=== PATIENT | female | born 1965 | race American Indian/Alaskan Native ===

== ENCOUNTER 2017-06-02 20:16 | Emergency (ER) | payer OTHER ==
[2017-06-02 20:42] VITALS: BP 143/92; PULSE 82; RESP 18; TEMP 98.8; O2SAT 99
--- NOTE | 2017-06-02 21:10 | ED PDOC ---
HPI: CCC, URI, Sore Throat Time Seen by Provider: 06/02/17 20:38 Chief Complaint (Nursing): Cough, Cold, Congestion Chief Complaint (Provider): Cough History Per: Patient History/Exam Limitations: no limitations Onset/Duration Of Symptoms: Days (x14 days) Current Symptoms Are (Timing): Still Present Additional Complaint(s): Veronica Starks, a 52 year old female, with a past medical history of sarcoidosis presents to the ED complaining of a cough x2 weeks. The patient states that her cough is productive of yellow sputum and when she vomits she notices a lot of phlegm. She states that she was seen by a doctor and was prescribed amoxycillin which has offered no relief. PMD: Octavio Perez Past Medical History Reviewed: Historical Data, Nursing Documentation, Vital Signs Vital Signs: Last Vital Signs Temp 98.8 F 06/02/17 20:38 Pulse 82 06/02/17 20:38 Resp 18 06/02/17 20:38 BP 143/92 H 06/02/17 20:38 Pulse Ox 99 06/02/17 21:13 - Medical History PMH: Diabetes, HTN Denies: Chronic Kidney Disease Other PMH: sarcoidosis - Family History Family History: States: Unknown Family Hx - Home Medications Home Medications: Ambulatory Orders Medication Instructions Recorded Lisinopril/Hydrochlorothiazide 1 tab PO DAILY 04/29/16 [Zestoretic 20-12.5 mg Tablet] Nebivolol [Bystolic] 5 mg PO DAILY 04/29/16 Metformin HCl [Glucophage] 1 tab PO BID #60 tab 06/29/16 predniSONE [predniSONE Tab] 20 mg PO DAILY #12 tab 06/02/17 - Allergies Allergies/Adverse Reactions: Allergies Allergy/AdvReac Type Severity Reaction Status Date / Time No Known Allergies Allergy Verified 06/29/16 10:58 Review of Systems Constitutional: Negative for: Fever Respiratory: Positive for: Cough (productive of yellow sputum) Gastrointestinal: Positive for: Vomiting Physical Exam - Reviewed Nursing Documentation Reviewed: Yes Vital Signs Reviewed: Yes - Physical Exam Appears: Positive for: Non-toxic, No Acute Distress Head Exam: Positive for: ATRAUMATIC, NORMAL INSPECTION, NORMOCEPHALIC Skin: Positive for: Normal Color, Warm, Dry Eye Exam: Positive for: Normal appearance, EOMI, PERRL. Negative for: Nystagmus ENT: Positive for: Normal ENT Inspection. Negative for: Nasal Congestion, Pharyngeal Erythema, Tonsillar Exudate, Tonsillar Swelling Neck: Positive for: Normal, Painless ROM, Supple Cardiovascular/Chest: Positive for: Regular Rate, Rhythm, Chest Non Tender. Negative for: Tachycardia Respiratory: Positive for: Normal Breath Sounds. Negative for: Rales, Rhonchi, Wheezing, Respiratory Distress Neurologic/Psych: Positive for: Alert, Oriented, Gait - ECG O2 Sat by Pulse Oximetry: 99 (RA) Pulse Ox Interpretation: Normal Medical Decision Making Medical Decision Makin Initial Impression: 52 year old female presenting with a cough Initial Plan: * CXR * Reevaluation Scribe Attestation Documented by Pao Clemons acting as a scribe for Jennifer Rouse PA-C. Scribe Attestation All medical record entries made by the Scribe were at my direction and personally dictated by me. I have reviewed the chart and agree that the record accurately reflects my personal performance of the history, physical exam, medical decision making, and the department course for this patient. I have also personally directed, reviewed, and agree with the discharge instructions and disposition. Disposition - Clinical Impression Clinical Impression: Cough - Patient ED Disposition Is Patient to be Admitted: No - Disposition Disposition: Routine/Home Disposition Time: 22:10 Condition: GOOD Prescriptions: predniSONE [predniSONE Tab] 20 mg PO DAILY #12 tab Instructions: Acute Cough (ED)
--- NOTE | 2017-06-03 11:00 | RAD ---
HISTORY: cough x 2 weeks COMPARISON: Chest x-ray performed 06/29/16 TECHNIQUE: Chest PA and lateral FINDINGS: LUNGS: Mild biapical pleural thickening. Left hilar infiltrate. Please note that chest x-ray has limited sensitivity for the detection of pulmonary masses. PLEURA: No significant pleural effusion identified. No definite pneumothorax . CARDIOVASCULAR: Heart size appears top normal. Ectatic aorta. OSSEOUS STRUCTURES: Degenerative changes of the spine. VISUALIZED UPPER ABDOMEN: Unremarkable. OTHER FINDINGS: None. IMPRESSION: Left hilar infiltrate. Study has been marked for PA review.
== END 2017-06-02 22:39 | disposition home or self-care (01) ==
LOC: H.ER 20:16
DX: R05 Cough (principal); E11.9 Type 2 diabetes mellitus without complications; I10 Essential (primary) hypertension; D86.9 Sarcoidosis, unspecified

== ENCOUNTER 2017-07-12 11:27 | Observation (INO) | payer OTHER ==
[2017-07-12] MEDS ORDERED: Insulin Regular 100 units/ml IVP ONE ×2 (11:44→13:25)
[2017-07-12 12:09] LABS: BASO % 0.5 % (0.0-2.0); EOS # 0.1 K/uL (0.0-0.7); EOS % 1.6 % (0.0-4.0); HEMATOCRIT 40.1 % (34.0-47.0); LYMPH % 22.4 % (20.0-40.0); MEAN CELL VOLUME 90.5 fl (81.0-99.0); MEAN CORPUSCULAR HEMOGLOBIN 29.7 pg (27.0-31.0); MEAN CORPUSCULAR HGB CONC 32.9 g/dL (33.0-37.0); MEAN PLATELET VOLUME 9.8 fl (7.2-11.7); MONO # 0.6 K/uL (0.0-0.8); MONO % 7.1 % (0.0-10.0); NEUT # 6.2 K/uL (1.8-7.0); NEUT % 68.4 % (50.0-75.0); NRBC % 0.1 % (0.0-0.0)
[2017-07-12 12:43] LABS: ALB/GLOB RATIO 1.3 (1.0-2.1); ALCOHOL SERUM < 10 mg/dl (0-10); ALKALINE PHOSPHATASE 86 U/L (38-126); ALT/SGPT 50 U/L (9-52); AST/SGOT 35 U/L (14-36); BILIRUBIN,TOTAL 0.7 mg/dl (0.2-1.3); BLOOD UREA NITROGEN 28 mg/dl (7-17); CALCIUM 9.7 mg/dL (8.4-10.2); CARBON DIOXIDE 20 mmol/L (22-30); CHLORIDE 92 mmol/L (98-107); GFR AFRICAN-AMERICAN 57; POTASSIUM 4.7 MMOL/L (3.6-5.0); SODIUM 130 mmol/l (132-148); TOTAL PROTEIN 7.2 G/DL (6.3-8.2)
[2017-07-12 12:59] LABS: GLUCOSE,RANDOM 610 mg/dL (65-105)
[2017-07-12] MEDS ORDERED: Insulin Regular 100 units/ml ONE ×2 (13:06→16:46)
[2017-07-12] MEDS ORDERED: Sodium Chloride 0.9% 2,000 ML IV STA (13:25)
--- NOTE | 2017-07-12 14:50 | ED PDOC ---
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 States has felt progressively worse over last week, now with polydipsia and polyuria. Denies fever, SOB or chest pain. Had prior cough and ? diagnosis of pneumonia but saw Dr Mixon and said it improved. Discussed w Dr Mixon- no recent steroid use. - Symptoms Of CVA Current Coumadin Use?: No Past Medical History Reviewed: Historical Data, Nursing Documentation, Vital Signs Vital Signs: Last Vital Signs Temp 98.6 F 07/12/17 11:33 Pulse 73 07/12/17 11:33 Resp 18 07/12/17 11:33 BP 90/50 L 07/12/17 11:33 Pulse Ox 99 07/12/17 11:33 - Medical History PMH: Diabetes, HTN Denies: Chronic Kidney Disease Other PMH: sarcoid - Family History Family History: States: Unknown Family Hx - Living Arrangements Living Arrangements: With Family - Social History Current smoker - smoking cessation education provided: No - Home Medications Home Medications: Ambulatory Orders Medication Instructions Recorded Lisinopril/Hydrochlorothiazide 1 tab PO DAILY 04/29/16 [Zestoretic 20-12.5 mg Tablet] Nebivolol [Bystolic] 5 mg PO DAILY 04/29/16 Metformin HCl [Glucophage] 1 tab PO BID #60 tab 06/29/16 predniSONE [predniSONE Tab] 20 mg PO DAILY #12 tab 06/02/17 - Allergies Allergies/Adverse Reactions: Allergies Allergy/AdvReac Type Severity Reaction Status Date / Time No Known Allergies Allergy Verified 07/12/17 11:33 Review of Systems ROS Statement: Except As Marked, All Systems Reviewed And Found Negative Constitutional: Negative for: Fever, Chills Cardiovascular: Negative for: Chest Pain, Palpitations Respiratory: Positive for: Cough. Negative for: Shortness of Breath, Wheezing Gastrointestinal: Negative for: Nausea, Vomiting Genitourinary Female: Negative for: Dysuria Musculoskeletal: Negative for: Neck Pain Skin: Negative for: Rash, Lesions Neurological: Positive for: Dizziness. Negative for: Weakness Physical Exam - Reviewed Nursing Documentation Reviewed: Yes Vital Signs Reviewed: Yes - Physical Exam Appears: Positive for: Well, Non-toxic, No Acute Distress Head Exam: Positive for: ATRAUMATIC, NORMAL INSPECTION, NORMOCEPHALIC Skin: Positive for: Normal Color, Warm, DRY Eye Exam: Positive for: EOMI, Normal appearance, PERRL ENT: Positive for: Normal ENT Inspection Neck: Positive for: Normal, Painless ROM Cardiovascular/Chest: Positive for: Regular Rate, Rhythm Respiratory: Negative for: Respiratory Distress Gastrointestinal/Abdominal: Positive for: Bowel Sounds, Soft. Negative for: Tenderness, Guarding Back: Positive for: Normal Inspection Extremity: Positive for: Normal ROM Neurologic/Psych: Positive for: Alert, remedy developer II-XII (intact), Oriented. Negative for: Motor/Sensory Deficits, Aphasia - Laboratory Results Result Diagrams: 07/12/17 12:05 07/12/17 12:05 - ECG ECG: Positive for: Interpreted By Me ECG Rhythm: Positive for: Sinus Rhythm, Nonspecific Changes Rate: 68 O2 Sat by Pulse Oximetry: 99 Pulse Ox Interpretation: Normal Medical Decision Making Medical Decision Making: workup initiated for dizziness, accucheck found to be high, labs and IVF bolus, insulin therapy ordered. CXR reviewed, no acute infiltrate on my initial review bloodwork reviewed, gluc 610 with mild elev AG, elev BUN, pseudohyponatremia. Insulin therapy and 2L NS - only marginal improvement glucose. D/w Dr Mixon, admit hospitalist, patient has not been on DM medications in awhile. Disposition - Clinical Impression Clinical Impression: Pre-syncope, Hyperglycemia, Dehydration - Patient ED Disposition Is Patient to be Admitted: Yes Counseled Patient/Family Regarding: Studies Performed, Diagnosis - Disposition Disposition Time: 14:20 Condition: STABLE
--- NOTE | 2017-07-12 14:53 | RAD ---
HISTORY: weakness hyperglycemia COMPARISON: 06/02/2017 TECHNIQUE: Chest PA and lateral FINDINGS: LUNGS: No active pulmonary disease. PLEURA: No significant pleural effusion identified. No pneumothorax apparent. CARDIOVASCULAR: Normal. OSSEOUS STRUCTURES: No significant abnormalities. VISUALIZED UPPER ABDOMEN: Normal. OTHER FINDINGS: None. IMPRESSION: No active disease.
--- NOTE | 2017-07-12 15:22 | CP.PCM.HP ---
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 Claimed she recently have respiratory infection and has been taking Prednisone? for a week. Denied SOB, chest pain, fever or chills. Present on Admission - Present on Admission Any Indicators Present on Admission: No History of DVT/PE: No History of Uncontrolled Diabetes: No Urinary Catheter: No Decubitus Ulcer Present: No Review of Systems - Review of Systems All systems: reviewed and no additional remarkable complaints except (aside from those mentioned above, 12 point system review were negative by me) Past Patient History - Infectious Disease Hx of Infectious Diseases: None - Tetanus Immunizations Tetanus Immunization: Unknown - Past Medical History & Family History Past Medical History?: Yes - Past Social History Smoking Status: Never Smoked Alcohol: None Drugs: Denies - CARDIAC Hx Hypertension: Yes - PULMONARY Hx Respiratory Disorders: No Other/Comment: sarcoidosis - NEUROLOGICAL Hx Neurological Disorder: No - HEENT Hx HEENT Problems: No - RENAL Hx Chronic Kidney Disease: No - ENDOCRINE/METABOLIC Hx Endocrine Disorders: Yes Hx Diabetes Mellitus Type 2: Yes - HEMATOLOGICAL/ONCOLOGICAL Hx Blood Disorders: No - INTEGUMENTARY Hx Dermatological Problems: No - MUSCULOSKELETAL/RHEUMATOLOGICAL Hx Musculoskeletal Disorders: No Hx Falls: No - GASTROINTESTINAL Hx Gastrointestinal Disorders: No - GENITOURINARY/GYNECOLOGICAL Hx Genitourinary Disorders: No - PSYCHIATRIC Hx Psychophysiologic Disorder: No Hx Substance Use: No - SURGICAL HISTORY Hx Surgeries: Yes Hx Section: Yes (x1) Hx Thyroidectomy: Yes Other/Comment: right thyroidectomy - ANESTHESIA Hx Anesthesia: Yes Hx Anesthesia Reactions: No Meds Allergies/Adverse Reactions: Allergies Allergy/AdvReac Type Severity Reaction Status Date / Time No Known Allergies Allergy Verified 07/12/17 11:33 Physical Exam - Constitutional Appears: Other (morbidly obese) - Head Exam Head Exam: ATRAUMATIC - Eye Exam Eye Exam: absent: Scleral icterus - ENT Exam ENT Exam: Mucous Membranes Moist - Neck Exam Neck exam: Negative for: Meningismus - Respiratory Exam Respiratory Exam: absent: Rhonchi, Wheezes, Respiratory Distress - Cardiovascular Exam Cardiovascular Exam: REGULAR RHYTHM, +S1, +S2 - GI/Abdominal Exam GI & Abdominal Exam: Soft. absent: Tenderness - Rectal Exam Rectal Exam: Deferred - Neurological Exam Neurological exam: Alert, Oriented x3 - Psychiatric Exam Psychiatric exam: Normal Affect - Skin Skin Exam: Dry, Intact Results - Vital Signs Recent Vital Signs: Last Vital Signs Temp 98.6 F 07/12/17 11:33 Pulse 68 07/12/17 15:00 Resp 18 07/12/17 11:33 BP 90/50 L 07/12/17 11:33 Pulse Ox 99 07/12/17 15:00 - Labs Result Diagrams: 07/12/17 12:05 07/12/17 12:05 Labs: Laboratory Results - last 24 hr 07/12/17 07/12/17 12:05 12:05 WBC 9.0 RBC 4.43 Hgb 13.2 Hct 40.1 MCV 90.5 MCH 29.7 MCHC 32.9 L RDW 13.0 Plt Count 177 MPV 9.8 Neut % (Auto) 68.4 Lymph % (Auto) 22.4 Dent % (Auto) 7.1 Eos % (Auto) 1.6 Baso % (Auto) 0.5 Neut # 6.2 Lymph # 2.0 Dent # 0.6 Eos # 0.1 Baso # 0.0 Sodium 130 L Potassium 4.7 Chloride 92 L Carbon Dioxide 20 L Anion Gap 23 H BUN 28 H Creatinine 1.2 Est GFR ( Amer) 57 Est GFR (Non-Af Amer) 47 Random Glucose 610 H* D Calcium 9.7 Total Bilirubin 0.7 AST 35 ALT 50 Alkaline Phosphatase 86 Troponin I < 0.0120 Total Protein 7.2 Albumin 4.1 Globulin 3.2 Albumin/Globulin Ratio 1.3 Alcohol, Quantitative < 10 Assessment & Plan (1) Pre-syncope Status: Acute Comment: place on observation in telemetry. serial Troponin and EKG. IV hydration (2) Dehydration Status: Acute Comment: secondary to uncontrolled hyperglycemia. continue IV hydration. hold Lisinopril and HCTZ (3) Uncontrolled diabetes mellitus Status: Acute Comment: patient was non-compliant with medication and also taking Prednisone? diabetic diet. ACHS with medium Lispro coverage. HgA1C, BMP in am (4) HTN (hypertension) Status: Chronic Comment: BP stable. Bystolic is non-formulary. Coreg 6.25mg PO q 12hrs (5) DVT prophylaxis Status: Acute Comment: Lovenox 40mg SC daily
[2017-07-12 15:51] LABS: RBC URINE 1 /hpf (0-3); URINE BILIRUBIN NEGATIVE (NEGATIVE); URINE BLOOD NEGATIVE (NEGATIVE); URINE COLOR YELLOW (YELLOW); URINE GLUCOSE (UA) >=500 mg/dL (Normal); URINE KETONE NEGATIVE (NEGATIVE); URINE LEUKOCYTE ESTERASE NEG Leu/uL (Negative); URINE PROTEIN NEGATIVE (NEGATIVE); URINE UROBILINOGEN 0.2-1.0 mg/dL (0.2-1.0); WBC URINE 5 /hpf (0-5)
[2017-07-12] MEDS: Sodium Chloride 0.9% 1,000 ML IV SCH ×2 (15:56→23:37)
[2017-07-12] MEDS: Insulin Lispro (humaLOG) 100 Units/ml Inj SC SCH ×2 (16:47→21:43)
[2017-07-12] MEDS ORDERED: Albuterol-Ipratrop 3 mg / 0.5 (3 ml) UD INH PRN (18:04)
[2017-07-12] MEDS ORDERED: Pneumococcal 23-Valent Vaccine IM ONE (18:46)
[2017-07-12] MEDS ORDERED: Influenza Vaccine 18yr & older 0.5 ML/45 MCG SYR IM ONE (18:46)
[2017-07-12] MEDS ORDERED: Insulin Detemir 100 Units/ml Inj SC STA (22:49)
--- NOTE | 2017-07-13 00:55 | CARD ---
APPROVED REPORT EKG Measurement Heart [id number] <Conclusion> Normal sinus rhythm Normal ECG
[2017-07-13] MEDS: Sodium Chloride 0.9% 1,000 ML IV SCH ×4 (04:57→21:38)
--- NOTE | 2017-07-13 05:42 | CON ---
ENDOCRINOLOGY CONSULT LOCATION: Room 413. HISTORY OF PRESENT ILLNESS: There is a 52-year-old female with known history of type 2 diabetes, apparently not on any medications at this time, presenting here with marked hyperglycemic accelerations and associated increasing generalized body weakness and hypersomnolence with marked polyuria, nocturia, and polyphagia, and is now being referred for diabetic evaluation and management. PAST MEDICAL HISTORY: 1. History of type 2 diabetes and has not been on any kind of diabetic medications as noted. 2. History of hypertensive cardiovascular disease and dyslipidemia. 3. History of super morbid obesity as noted. 4. Also history of sarcoidosis and apparently has been stable as noted. 5. She has a recent upper respiratory infection and was treated with steroid therapy for a week as noted. PAST MEDICAL HISTORY: Positive for hypertension and diabetes. SOCIAL HISTORY: The patient has a supportive family. No known substance use. 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 REVIEW OF SYSTEMS: As mentioned above. Admits to generalized body weakness with easy fatigability and tiredness and suboptimal energy level. Also admits to episodic bouts of dizziness and lightheadedness, worse in the last few days prior to admission. No chest pains or palpitations, but admits to progressive shortness of breath especially on exertion. Her oral intake has been variable with nausea, dyspepsia, and vague upper abdominal pains with recent marked polyuria, nocturia, polydipsia as noted. She has also admits to lower extremity paresthesias, especially nocturnally. PHYSICAL EXAMINATION: GENERAL: This is a morbidly obese female in no apparent distress. VITAL SIGNS: Blood pressure of 140/80, pulse of 100 beats per minute and regular, temperature 99, respirations 20, height is 5' 7", weight is 280 pounds. HEENT: Head normocephalic. Eyes anicteric with pink conjunctivae. Funduscopy not possible at this time. Ears, nose, and throat otherwise normal. NECK: Supple. Thyroid gland is normal in size. No carotid bruits or any cervical adenopathy. CARDIOPULMONARY: Some adynamic precordium. S1 and S2 is rapid and regular. LUNGS: Clear to auscultation. ABDOMEN: Obese and soft with positive bowel sounds. EXTREMITIES: No peripheral edema. Pulses are +2 bilaterally. LABORATORY DATA: Her chemistries showed a BUN of 28, sodium 130, potassium 4.7, chloride 92, CO2 28, glucose 610, and creatinine 1.2. ASSESSMENT: This is a 52-year-old female with uncontrolled and decompensated type 2 insulin-requiring diabetes with marked hyperglycemic accelerations and also supervening prerenal azotemia with spurious hyponatremia and dehydration with underlying super morbid obesity, which is also contributing to the increased insulin resistance thereof. PLAN OF MANAGEMENT: As discussed with the patient and staff, we will modify her current insulin regimen to a more physiologic insulin dose combination and we will give her a stat dose of Levemir 20 units subcu tonight as ordered. We will also initiate Humalog given as 10 units subcu t.i.d. before meals, to start tomorrow morning as ordered. We will modify the coverage scale to a low-dose algorithm to obviate hypoglycemia as ordered. We will continue the vigorous IV hydration as given and supplement accordingly as needed. We will also initiate diabetic education and dietary instructions, especially with weight loss efforts and healthy food choices. We will also include insulin self-administration with her diabetic education to be initiated accordingly. We will follow. Salina Forrester MD
[2017-07-13 05:49] LABS: BASO # 0.1 K/uL (0.0-0.2); BASO % 0.9 % (0.0-2.0); EOS # 0.3 K/uL (0.0-0.7); HEMATOCRIT 36.4 % (34.0-47.0); LYMPH # 2.9 K/uL (1.0-4.3); LYMPH % 34.3 % (20.0-40.0); MEAN CELL VOLUME 89.7 fl (81.0-99.0); MEAN CORPUSCULAR HEMOGLOBIN 30.3 pg (27.0-31.0); MEAN CORPUSCULAR HGB CONC 33.7 g/dL (33.0-37.0); MEAN PLATELET VOLUME 9.8 fl (7.2-11.7); MONO # 0.8 K/uL (0.0-0.8); MONO % 9.3 % (0.0-10.0); NEUT # 4.3 K/uL (1.8-7.0); NEUT % 51.5 % (50.0-75.0); NRBC % 0.1 % (0.0-0.0); RED CELL DISTRIBUTION WIDTH 12.9 % (11.5-14.5); WHITE BLOOD COUNT 8.4 K/uL (4.8-10.8)
[2017-07-13] MEDS: Insulin Lispro (humaLOG) 100 Units/ml Inj SC SCH ×7 (06:34→22:20)
[2017-07-13 07:53] LABS: ALB/GLOB RATIO 1.1 (1.0-2.1); ALKALINE PHOSPHATASE 68 U/L (38-126); ALT/SGPT 41 U/L (9-52); AST/SGOT 36 U/L (14-36); BILIRUBIN,TOTAL 0.6 mg/dl (0.2-1.3); BLOOD UREA NITROGEN 20 mg/dl (7-17); CARBON DIOXIDE 22 mmol/L (22-30); CHLORIDE 104 mmol/L (98-107); CHOLESTEROL 137 mg/dL (0-199); GFR AFRICAN-AMERICAN > 60; GLUCOSE,RANDOM 309 mg/dL (65-105); POTASSIUM 3.8 MMOL/L (3.6-5.0); SODIUM 137 mmol/l (132-148); TOTAL PROTEIN 6.4 G/DL (6.3-8.2)
[2017-07-13] MEDS: Enoxaparin 40 mg Syringe SC SCH (08:39)
[2017-07-13 08:46] LABS: THYROID STIMULATING HORMONE 0.75 mIU/ML (0.46-4.68)
--- NOTE | 2017-07-13 12:15 | CP.PCM.CON ---
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 She is a known Type II Diabetic who had been taking Metformin in the past, but not at the present time. She was recently seen in the ER and treated for cough and possible OLI pneumonia using amoxicillin and prednisone. When seen by myself in the office on 06/10/17 her prednisone was discontinued and she had finished the course of antibiotic. When seen on the she was placed on fluticasone nasal spray and started on a course of Augmentin 875 for signs of residual maxillary sinusitis. She has never needed insulin for her diabetes. Review of Systems - Review of Systems All systems: reviewed and no additional remarkable complaints except - Constitutional Constitutional: Excessive Sweating, Fatigue, Weakness - EENT Nose/Mouth/Throat: Nasal Congestion - Neurological Neurological: Dizziness - Endocrine Endocrine: Polydipsia, Polyuria Past Patient History - Infectious Disease Hx of Infectious Diseases: None - Tetanus Immunizations Tetanus Immunization: Unknown - Past Medical History & Family History Past Medical History?: Yes Pertinent Family History: [place], colon cancer (one brother and one sister). - Past Social History Smoking Status: Never Smoked Chewing Tobacco Use: No Cigar Use: No Alcohol: None Drugs: Denies - CARDIAC Hx Hypertension: Yes - PULMONARY Other/Comment: sarcoidosis - NEUROLOGICAL Hx Neurological Disorder: No - HEENT Hx Sinusitis: Yes Other/Comment: mastoiditis, otitis media - RENAL Hx Chronic Kidney Disease: No - ENDOCRINE/METABOLIC Hx Diabetes Mellitus Type 2: Yes Other/Comment: thyroid nodule - HEMATOLOGICAL/ONCOLOGICAL Hx Blood Disorders: No - INTEGUMENTARY Hx Dermatological Problems: No - MUSCULOSKELETAL/RHEUMATOLOGICAL Hx Musculoskeletal Disorders: No Hx Falls: No - GASTROINTESTINAL Hx Gastrointestinal Disorders: No - GENITOURINARY/GYNECOLOGICAL Hx Genitourinary Disorders: No - PSYCHIATRIC Hx Psychophysiologic Disorder: No Hx Substance Use: No - SURGICAL HISTORY Hx Section: Yes (x1) Hx Thyroidectomy: Yes Other/Comment: right thyroidectomy - ANESTHESIA Hx Anesthesia: Yes Hx Anesthesia Reactions: No Meds Allergies/Adverse Reactions: Allergies Allergy/AdvReac Type Severity Reaction Status Date / Time No Known Allergies Allergy Verified 07/12/17 11:33 - Medications Medications: Current Medications Albuterol/Ipratropium (Duoneb 3 Mg/0.5 Mg (3 Ml) Ud) 3 ml INH RQ6 PRN PRN Reason: Shortness of Breath Carvedilol (Coreg) 6.25 mg PO Q12 [facility] Last Admin: 07/13/17 09:00 Dose: Not Given Enoxaparin Sodium (Lovenox) 40 mg SC DAILY [facility] PRN Reason: Protocol Last Admin: 07/13/17 08:39 Dose: 40 mg Sodium Chloride (Sodium Chloride 0.9%) 1,000 mls @ 125 mls/hr IV .Q8H [facility] Insulin Detemir (Levemir) 34 units SC HS [facility] Insulin Human Lispro (Humalog) 0 units SC ACHS [facility] PRN Reason: Protocol Last Admin: 07/13/17 11:16 Dose: 5 units Insulin Human Lispro (Humalog) 14 units SC AC [facility] Results - Vital Signs Recent Vital Signs: Last Vital Signs Temp 98.4 F 07/13/17 08:00 Pulse 54 L 07/13/17 09:00 Resp 18 07/13/17 08:00 BP 123/61 07/13/17 09:00 Pulse Ox 100 07/13/17 08:00 - Labs Result Diagrams: 07/13/17 05:15 07/13/17 05:15 Labs: Laboratory Results - last 24 hr 07/12/17 07/12/17 07/12/17 11:36 12:05 12:05 WBC 9.0 RBC 4.43 Hgb 13.2 Hct 40.1 MCV 90.5 MCH 29.7 MCHC 32.9 L RDW 13.0 Plt Count 177 MPV 9.8 Neut % (Auto) 68.4 Lymph % (Auto) 22.4 [place] % (Auto) 7.1 Eos % (Auto) 1.6 Baso % (Auto) 0.5 Neut # 6.2 Lymph # 2.0 Mcminn # 0.6 Eos # 0.1 Baso # 0.0 Sodium 130 L Potassium 4.7 Chloride 92 L Carbon Dioxide 20 L Anion Gap 23 H BUN 28 H Creatinine 1.2 Est GFR ( Amer) 57 Est GFR (Non-Af Amer) 47 POC Glucose (mg/dL) > 500 H* Random Glucose 610 H* D Calcium 9.7 Total Bilirubin 0.7 AST 35 ALT 50 Alkaline Phosphatase 86 Troponin I < 0.0120 Total Protein 7.2 Albumin 4.1 Globulin 3.2 Albumin/Globulin Ratio 1.3 Triglycerides Cholesterol LDL Cholesterol Direct HDL Cholesterol TSH 3rd Generation Urine Color Urine Clarity Urine pH Ur Specific [place] Urine Protein Urine Glucose (UA) Urine Ketones Urine Blood Urine Nitrate Urine Bilirubin Urine Urobilinogen Ur Leukocyte Esterase Urine RBC (Auto) Urine Microscopic WBC Ur Squamous Epith Cells Alcohol, Quantitative < 10 07/12/17 07/12/17 07/12/17 13:02 14:15 15:29 WBC RBC Hgb Hct MCV MCH MCHC RDW Plt Count MPV Neut % (Auto) Lymph % (Auto) [place] % (Auto) Eos % (Auto) Baso % (Auto) Neut # Lymph # [place] # Eos # Baso # Sodium Potassium Chloride Carbon Dioxide Anion Gap BUN Creatinine Est GFR ( Amer) Est GFR (Non-Af Amer) POC Glucose (mg/dL) 487 H* 455 H* 381 H Random Glucose Calcium Total Bilirubin AST ALT Alkaline Phosphatase Troponin I Total Protein Albumin Globulin Albumin/Globulin Ratio Triglycerides Cholesterol LDL Cholesterol Direct HDL Cholesterol TSH 3rd Generation Urine Color Urine Clarity Urine pH Ur Specific [place] Urine Protein Urine Glucose (UA) Urine Ketones Urine Blood Urine Nitrate Urine Bilirubin Urine Urobilinogen Ur Leukocyte Esterase Urine RBC (Auto) Urine Microscopic WBC Ur Squamous Epith Cells Alcohol, Quantitative 07/12/17 07/12/17 07/12/17 15:34 16:32 20:30 WBC RBC Hgb Hct MCV MCH MCHC RDW Plt Count MPV Neut % (Auto) Lymph % (Auto) [place] % (Auto) Eos % (Auto) Baso % (Auto) Neut # Lymph # [place] # Eos # Baso # Sodium Potassium Chloride Carbon Dioxide Anion Gap BUN Creatinine Est GFR ( Amer) Est GFR (Non-Af Amer) POC Glucose (mg/dL) > 500 H* Random Glucose Calcium Total Bilirubin AST ALT Alkaline Phosphatase Troponin I < 0.0120 Total Protein Albumin Globulin Albumin/Globulin Ratio Triglycerides Cholesterol LDL Cholesterol Direct HDL Cholesterol TSH 3rd Generation Urine Color Yellow Urine Clarity Slighty-cloudy Urine pH 6.0 Ur Specific [place] 1.021 Urine Protein Negative Urine Glucose (UA) >=500 Urine Ketones Negative Urine Blood Negative Urine Nitrate Negative Urine Bilirubin Negative Urine Urobilinogen 0.2-1.0 Ur Leukocyte Esterase Neg Urine RBC (Auto) 1 Urine Microscopic WBC 5 Ur Squamous Epith Cells 1 Alcohol, Quantitative 07/12/17 07/13/17 07/13/17 21:20 05:15 05:15 WBC 8.4 RBC 4.06 Hgb 12.3 Hct 36.4 MCV 89.7 MCH 30.3 MCHC 33.7 RDW 12.9 Plt Count 154 MPV 9.8 Neut % (Auto) 51.5 Lymph % (Auto) 34.3 [place] % (Auto) 9.3 Eos % (Auto) 4.0 Baso % (Auto) 0.9 Neut # 4.3 Lymph # 2.9 Mcminn # 0.8 Eos # 0.3 Baso # 0.1 Sodium 137 Potassium 3.8 Chloride 104 Carbon Dioxide 22 Anion Gap 15 BUN 20 H Creatinine 0.7 Est GFR ( Amer) > 60 Est GFR (Non-Af Amer) > 60 POC Glucose (mg/dL) 415 H* Random Glucose 309 H Calcium 9.0 Total Bilirubin 0.6 AST 36 ALT 41 Alkaline Phosphatase 68 Troponin I < 0.0120 Total Protein 6.4 Albumin 3.3 L Globulin 3.1 Albumin/Globulin Ratio 1.1 Triglycerides 215 H D Cholesterol 137 LDL Cholesterol Direct 72 HDL Cholesterol 22 L TSH 3rd Generation 0.75 Urine Color Urine Clarity Urine pH Ur Specific [place] Urine Protein Urine Glucose (UA) Urine Ketones Urine Blood Urine Nitrate Urine Bilirubin Urine Urobilinogen Ur Leukocyte Esterase Urine RBC (Auto) Urine Microscopic WBC Ur Squamous Epith Cells Alcohol, Quantitative 07/13/17 07/13/17 05:25 11:05 WBC RBC Hgb Hct MCV MCH MCHC RDW Plt Count MPV Neut % (Auto) Lymph % (Auto) [place] % (Auto) Eos % (Auto) Baso % (Auto) Neut # Lymph # [place] # Eos # Baso # Sodium Potassium Chloride Carbon Dioxide Anion Gap BUN Creatinine Est GFR ( Amer) Est GFR (Non-Af Amer) POC Glucose (mg/dL) 310 H 404 H* Random Glucose Calcium Total Bilirubin AST ALT Alkaline Phosphatase Troponin I Total Protein Albumin Globulin Albumin/Globulin Ratio Triglycerides Cholesterol LDL Cholesterol Direct HDL Cholesterol TSH 3rd Generation Urine Color Urine Clarity Urine pH Ur Specific [place] Urine Protein Urine Glucose (UA) Urine Ketones Urine Blood Urine Nitrate Urine Bilirubin Urine Urobilinogen Ur Leukocyte Esterase Urine RBC (Auto) Urine Microscopic WBC Ur Squamous Epith Cells Alcohol, Quantitative Assessment & Plan (1) Sarcoidosis Status: Chronic Priority: High (2) Uncontrolled diabetes mellitus Status: Chronic Priority: High - Date & Time Date: 07/13/17 Time: 12:11
[2017-07-13 12:17] LABS: CORTISOL AM 17.1 ug/dL (4.46-22.7)
--- NOTE | 2017-07-13 13:23 | CP.PCM.PN ---
Subjective - Date & Time of Evaluation Date of Evaluation: 07/13/17 Time of Evaluation: 09:35 - Subjective Subjective: 52 y/o morbidly obese female with PMHx of DM type II uncontrolled, HTN, HLD, sarcoidosis, asthma and hyperlipidemia seen at bedside for hyperglycemia with generalized weakness. 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 Pt states she felt as thought she might faint, but did not actually faint. Pt relays that she was having increased frequency of urination. She also states that she felt lightheaded and overall body weakness. She denies experiencing any F/N/V/CP. Pt denies SOB at this time but states she does occasionally experience this due to her asthma. Pt admits that she has Metformin for her diabetes but does not take it because she says it makes her have blurred vision. Pt states she rarely if ever checks her blood sugar at home. Pt has never taken insulin for her diabetes. Pt states she was on prednisone about a month ago for a respiratory infection but has not taken any steroid medications since then. Objective - Vital Signs/Intake and Output Vital Signs (last 24 hours): Temp Pulse Resp BP Pulse Ox 98.3 F 56 L 18 106/67 98 07/13/17 12:00 07/13/17 12:00 07/13/17 12:00 07/13/17 12:00 07/13/17 12:00 - Medications Medications: Current Medications Albuterol/Ipratropium (Duoneb 3 Mg/0.5 Mg (3 Ml) Ud) 3 ml INH RQ6 PRN PRN Reason: Shortness of Breath Carvedilol (Coreg) 6.25 mg PO Q12 [facility] Last Admin: 07/13/17 09:00 Dose: Not Given Enoxaparin Sodium (Lovenox) 40 mg SC DAILY [facility] PRN Reason: Protocol Last Admin: 07/13/17 08:39 Dose: 40 mg Sodium Chloride (Sodium Chloride 0.9%) 1,000 mls @ 125 mls/hr IV .Q8H [facility] Last Admin: 07/13/17 12:32 Dose: 125 mls/hr Insulin Detemir (Levemir) 34 units SC HS [facility] Insulin Human Lispro (Humalog) 0 units SC ACHS [facility] PRN Reason: Protocol Last Admin: 07/13/17 11:16 Dose: 5 units Insulin Human Lispro (Humalog) 14 units SC AC [facility] - Labs Labs: 07/13/17 05:15 07/13/17 05:15 - Constitutional Appears: Well, Non-toxic, No Acute Distress - Head Exam Head Exam: ATRAUMATIC, NORMOCEPHALIC - Eye Exam Eye Exam: EOMI, PERRL Pupil Exam: PERRL - ENT Exam ENT Exam: Mucous Membranes Moist - Neck Exam Additional comments: neck supple, non-tender, no swollen lymph nodes - Respiratory Exam Respiratory Exam: NORMAL BREATHING PATTERN Additional comments: negative for wheezing or rales. Normal breathing, not labored. - Cardiovascular Exam Cardiovascular Exam: REGULAR RHYTHM, +S1, +S2 Additional comments: no JVD, no gallops, no murmurs - GI/Abdominal Exam GI & Abdominal Exam: Soft, Normal Bowel Sounds Additional comments: abdomen non-tender - Neurological Exam Neurological Exam: Alert, Awake, Oriented x3 - Psychiatric Exam Psychiatric exam: Normal Affect, Normal Mood - Skin Skin Exam: Dry, Intact, Normal Color Assessment and Plan (1) Hyperglycemia Assessment & Plan: Pt given stat dose Levemir and started on Humalog Pt receiving IV fluids Will monitor sugar levels Endocrine on board Status: Acute (2) Uncontrolled diabetes mellitus Assessment & Plan: Endocrine on board Pt given stat dose Levemir and started on Humalog Pt educated and counseled on daily sugar checks and importance of diabetic medication Pt to be educated on performing at home insulin injections Status: Chronic (3) Vasovagal near syncope Assessment & Plan: Sugars slowly improving, down to 400s from 600s Pt receiving IV hydration Symptoms of weakness and lightheadedness resolving Will continue to monitor Status: Acute (4) Sarcoidosis Assessment & Plan: Resolved with prednisone therapy CXR shows no infiltrates, no active disease pulmonology on board Status: Resolved (5) Dehydration Assessment & Plan: secondary to uncontrolled diabetes with hyperglycemia BUN levels improving since admission with IV fluids and glycemic improvement Continue with IV hydration Status: Acute (6) Morbid obesity Assessment & Plan: Diet education and counseling Pt on heart healthy diet Status: Chronic (7) HTN (hypertension) Assessment & Plan: -Carvedilol held as BP is under control at this time -continue BP meds if pressure becomes elevated Status: Chronic (8) DVT prophylaxis Assessment & Plan: Continue Lovenox 40mg SC daily Status: Acute (9) Asthma Assessment & Plan: Asymptomatic at this time Continue with Albuterol/Ipratropium nebulizer as needed Status: Chronic
--- NOTE | 2017-07-13 18:32 | PN ---
ROOM: 413 SUBJECTIVE: This is a 52-year-old female with recent uncontrolled type 2 insulin-requiring diabetes, recent diagnosis and evaluation, presenting here with hyperosmolar hyperglycemic state and dehydration with prerenal azotemia and spurious hyponatremia as noted thereof. She received vigorous IV hydration with normal saline infusion as ongoing at this time. She has also received intensive insulin therapy with a high-dose basal and bolus insulin drug combination as given with ongoing Humalog coverage scale at the low dose algorithm as ordered. Today's glucose values are still fluctuating with persistent hyperglycemic acceleration as noted thereof. Her glucose levels have ranged from 310-404 mg/dL. Her hemoglobin A1c is 15.8% which is quite elevated and indicative of very poor outpatient medical therapy of her diabetic condition. So at this time, we will continue the vigorous IV hydration at a lower rate of 125 mL/hour as ordered. We will also modify her current basal and bolus insulin regimen and increase the Humalog to 14 units subcu t.i.d. before meals to start at lunchtime today as ordered. We will also increase the Levemir and basal insulin to 34 units subcu at bedtime daily as ordered. We will initiate diabetic education and dietary instructions at this time of admission to include insulin self-administration and also healthy food choices with weight loss efforts as recommended. We will obtain serial chemistries and supplement accordingly as needed. We will follow. Salina Forrester MD
[2017-07-13] MEDS ORDERED: Insulin Detemir 100 Units/ml Inj SC SCH ×2 (22:00)
[2017-07-14] MEDS: Sodium Chloride 0.9% 1,000 ML IV SCH ×2 (05:46→11:57)
[2017-07-14 06:21] LABS: ALB/GLOB RATIO 1.1 (1.0-2.1); ALKALINE PHOSPHATASE 68 U/L (38-126); ALT/SGPT 43 U/L (9-52); AST/SGOT 47 U/L (14-36); BILIRUBIN,TOTAL 0.4 mg/dl (0.2-1.3); BLOOD UREA NITROGEN 12 mg/dl (7-17); CALCIUM 8.8 mg/dL (8.4-10.2); CARBON DIOXIDE 24 mmol/L (22-30); GFR AFRICAN-AMERICAN > 60; GLUCOSE,RANDOM 293 mg/dL (65-105); PHOSPHOROUS 3.1 mg/dl (2.5-4.5); POTASSIUM 3.8 MMOL/L (3.6-5.0); SODIUM 141 mmol/l (132-148); TOTAL PROTEIN 5.8 G/DL (6.3-8.2)
[2017-07-14 06:31] LABS: CHLORIDE 107 mmol/L (98-107)
[2017-07-14] MEDS: Insulin Lispro (humaLOG) 100 Units/ml Inj SC SCH ×4 (06:42→11:57)
[2017-07-14 08:04] VITALS: RESP 18
[2017-07-14] MEDS: Enoxaparin 40 mg Syringe SC SCH ×2 (09:03→09:47)
--- NOTE | 2017-07-14 10:04 | CP.PCM.DIS ---
<Monique Carrera - Last Filed: 07/15/17 07:20> Provider - Provider Date of Admission: 07/12/17 14:46 Attending physician: Damon Gallo MD Primary care physician: Dr. Alvarado Time Spent in preparation of Discharge (in minutes): 25 Diagnosis - Discharge Diagnosis (1) Hyperglycemia Status: Acute Priority: High Onset Date: ~07/12/17 Comment: pt educated on importance of diabetic medical management. pt advised to return to ED if she feels faint or lightheaded like this again or if she sees drastic changes in her blood sugar. pt advised to f/u with PMD Dr. Alvarado to manage her diabetic meds (2) Uncontrolled diabetes mellitus Status: Chronic Priority: High Comment: demonstrated to patient how to perform at home insulin injections. Rx given for Lispro TID and Levemir 34 units daily at nighttime. Rx given for glucometer, lancet, alcohol pads and strips for at home sugar checks (3) Vasovagal near syncope Status: Acute Comment: symptoms resolved since admission. pt instructed to return to ED should she ever feel similar symptoms such as lightheadedness and dizzy or faint (4) Dehydration Status: Acute (5) Morbid obesity Status: Chronic (6) HTN (hypertension) Status: Chronic Comment: BP controlled with home meds. recommended pt discuss with PMD about altering meds so she does not have a combination drug with water pill, as this contributed to her dehydration and may not be necessary for her (7) DVT prophylaxis Status: Acute Hospital Course - Lab Results Lab Results: Most Recent Lab Values WBC 8.4 K/uL (4.8-10.8) 07/13/17 05:15 RBC 4.06 Mil/uL (3.80-5.20) 07/13/17 05:15 Hgb 12.3 g/dL (12.0-16.0) 07/13/17 05:15 Hct 36.4 % (34.0-47.0) 07/13/17 05:15 MCV 89.7 fl (81.0-99.0) 07/13/17 05:15 MCH 30.3 pg (27.0-31.0) 07/13/17 05:15 MCHC 33.7 g/dL (33.0-37.0) 07/13/17 05:15 RDW 12.9 % (11.5-14.5) 07/13/17 05:15 Plt Count 154 K/uL (130-400) 07/13/17 05:15 MPV 9.8 fl (7.2-11.7) 07/13/17 05:15 Neut % (Auto) 51.5 % (50.0-75.0) 07/13/17 05:15 Lymph % (Auto) 34.3 % (20.0-40.0) 07/13/17 05:15 [place] % (Auto) 9.3 % (0.0-10.0) 07/13/17 05:15 Eos % (Auto) 4.0 % (0.0-4.0) 07/13/17 05:15 Baso % (Auto) 0.9 % (0.0-2.0) 07/13/17 05:15 Neut # 4.3 K/uL (1.8-7.0) 07/13/17 05:15 Lymph # 2.9 K/uL (1.0-4.3) 07/13/17 05:15 [place] # 0.8 K/uL (0.0-0.8) 07/13/17 05:15 Eos # 0.3 K/uL (0.0-0.7) 07/13/17 05:15 Baso # 0.1 K/uL (0.0-0.2) 07/13/17 05:15 Sodium 141 mmol/l (132-148) 07/14/17 05:20 Potassium 3.8 MMOL/L (3.6-5.0) 07/14/17 05:20 Chloride 107 mmol/L (98-107) 07/14/17 05:20 Carbon Dioxide 24 mmol/L (22-30) 07/14/17 05:20 Anion Gap 14 (10-20) 07/14/17 05:20 BUN 12 mg/dl (7-17) 07/14/17 05:20 Creatinine 0.7 mg/dL (0.7-1.2) 07/14/17 05:20 Est GFR ( Amer) > 60 07/14/17 05:20 Est GFR (Non-Af Amer) > 60 07/14/17 05:20 POC Glucose (mg/dL) 310 mg/dL (65-110) H 07/14/17 05:45 Random Glucose 293 mg/dL (65-105) H 07/14/17 05:20 Hemoglobin A1c 15.8 % (4.2-6.5) H D 07/13/17 05:15 Calcium 8.8 mg/dL (8.4-10.2) 07/14/17 05:20 Phosphorus 3.1 mg/dl (2.5-4.5) 07/14/17 05:20 Total Bilirubin 0.4 mg/dl (0.2-1.3) 07/14/17 05:20 AST 47 U/L (14-36) H D 07/14/17 05:20 ALT 43 U/L (9-52) 07/14/17 05:20 Alkaline Phosphatase 68 U/L (38-126) 07/14/17 05:20 Troponin I < 0.0120 ng/mL (0.00-0.120) 07/13/17 05:15 Total Protein 5.8 G/DL (6.3-8.2) L 07/14/17 05:20 Albumin 3.0 g/dL (3.5-5.0) L 07/14/17 05:20 Globulin 2.8 gm/dL (2.2-3.9) 07/14/17 05:20 Albumin/Globulin Ratio 1.1 (1.0-2.1) 07/14/17 05:20 Triglycerides 215 mg/DL (0-149) H D 07/13/17 05:15 Cholesterol 137 mg/dL (0-199) 07/13/17 05:15 LDL Cholesterol Direct 72 mg/dL (0-129) 07/13/17 05:15 HDL Cholesterol 22 MG/DL (30-70) L 07/13/17 05:15 TSH 3rd Generation 0.75 mIU/ML (0.46-4.68) 07/13/17 05:15 Cortisol AM Sample 17.1 ug/dL (4.46-22.7) 07/13/17 05:15 Urine Color Yellow (YELLOW) 07/12/17 15:34 Urine Clarity Slighty-cloudy (Clear) 07/12/17 15:34 Urine pH 6.0 (5.0-8.0) 07/12/17 15:34 Ur Specific [place] 1.021 (1.003-1.030) 07/12/17 15:34 Urine Protein Negative mg/dL (NEGATIVE) 07/12/17 15:34 Urine Glucose (UA) >=500 mg/dL (Normal) 07/12/17 15:34 Urine Ketones Negative mg/dL (NEGATIVE) 07/12/17 15:34 Urine Blood Negative (NEGATIVE) 07/12/17 15:34 Urine Nitrate Negative (NEGATIVE) 07/12/17 15:34 Urine Bilirubin Negative (NEGATIVE) 07/12/17 15:34 Urine Urobilinogen 0.2-1.0 mg/dL (0.2-1.0) 07/12/17 15:34 Ur Leukocyte Esterase Neg Jeff/uL (Negative) 07/12/17 15:34 Urine RBC (Auto) 1 /hpf (0-3) 07/12/17 15:34 Urine Microscopic WBC 5 /hpf (0-5) 07/12/17 15:34 Ur Squamous Epith Cells 1 /hpf (0-5) 07/12/17 15:34 Alcohol, Quantitative < 10 mg/dl (0-10) 07/12/17 12:05 - Hospital Course Hospital Course: 52 y/o morbidly obese female with PMHx of diabetes type II uncontrolled, HTN, and sarcoidosis seen in ED for dizziness, lightheadedness and cold sweats with increased urination and generalized weakness. Pt denies checking her sugars and does not regularly take her Metformin. Pt given IV fluids and started on Levemir and Humalog. Pulmonology Dr. Mixon on board for history of sarcoidosis. Pt no longer on steroid therapy for approx 1 month in duration prior to admission. Pt sugars decreased from 600s on admission to 200s. Pt no longer experiencing chills. Pt denies F/N/V/CP/SOB throughout her hospital stay. Pt educated on importance of diabetic medication and instructed to follow up with her PMD Dr. Alvarado for management of medications. Pt educated on how to properly inject insulin at home and when to take each insulin. Pt discharged home in stable condition and will follow up with Dr. Mixon for her sarcoidosis and follow up with her PMD Dr. Alvarado for diabetes management. - Date & Time of H&P Date of H&P: 07/14/17 Time of H&P: 10:30 Discharge Exam - Head Exam Head Exam: ATRAUMATIC, NORMOCEPHALIC - Eye Exam Eye Exam: EOMI, PERRL Pupil Exam: PERRL - ENT Exam ENT Exam: Mucous Membranes Moist - Neck Exam Neck exam: Full Rom - Respiratory Exam Respiratory Exam: NORMAL BREATHING PATTERN, UNREMARKABLE Additional comments: no wheezing, no rales - Cardiovascular Exam Cardiovascular Exam: REGULAR RHYTHM, +S1, +S2 - GI/Abdominal Exam GI & Abdominal Exam: Normal Bowel Sounds, Soft - Extremities Exam Extremities exam: pedal pulses present - Neurological Exam Neurological exam: Alert, Oriented x3 - Psychiatric Exam Psychiatric exam: Normal Affect, Normal Mood Discharge Plan - Discharge Medications Prescriptions: Alcohol Antiseptic Pads [Alcohol Pads] 1 each TP ASDIR #3 pkg Insulin Detemir [Levemir] 34 unit SQ HS #5 pe Insulin Lispro [Humalog Kwikpen U-200] 200 unit SQ ACTID #2 insuln.pen metFORMIN [glucOPHAGE] 850 mg PO BIDWM #60 tab Pen Needle, Diabetic [Pen [place]] 1 each SQ ASDIR #500 dis.needle - Follow Up Plan Condition: STABLE Disposition: HOME/ ROUTINE Instructions: Insulin Lispro (By injection), How to Check Your Blood Sugar (DC) , Diabetic Hypoglycemia (DC), Pen Devices for Insulin Administration (DC), Diabetic Hyperglycemia (DC) Referrals: Salina Forrester MD [Medical Doctor] - Nancy Conti MD [Medical Doctor] - Monique Petit MD [Staff Provider] - <Annalisa Gonzalez Jluia - Last Filed: 07/15/17 07:43> Provider - Provider Date of Admission: 07/12/17 14:46 Attending physician: Damon Gallo MD Hospital Course - Lab Results Lab Results: Most Recent Lab Values WBC 8.4 K/uL (4.8-10.8) 07/13/17 05:15 RBC 4.06 Mil/uL (3.80-5.20) 07/13/17 05:15 Hgb 12.3 g/dL (12.0-16.0) 07/13/17 05:15 Hct 36.4 % (34.0-47.0) 07/13/17 05:15 MCV 89.7 fl (81.0-99.0) 07/13/17 05:15 MCH 30.3 pg (27.0-31.0) 07/13/17 05:15 MCHC 33.7 g/dL (33.0-37.0) 07/13/17 05:15 RDW 12.9 % (11.5-14.5) 07/13/17 05:15 Plt Count 154 K/uL (130-400) 07/13/17 05:15 MPV 9.8 fl (7.2-11.7) 07/13/17 05:15 Neut % (Auto) 51.5 % (50.0-75.0) 07/13/17 05:15 Lymph % (Auto) 34.3 % (20.0-40.0) 07/13/17 05:15 [place] % (Auto) 9.3 % (0.0-10.0) 07/13/17 05:15 Eos % (Auto) 4.0 % (0.0-4.0) 07/13/17 05:15 Baso % (Auto) 0.9 % (0.0-2.0) 07/13/17 05:15 Neut # 4.3 K/uL (1.8-7.0) 07/13/17 05:15 Lymph # 2.9 K/uL (1.0-4.3) 07/13/17 05:15 [place] # 0.8 K/uL (0.0-0.8) 07/13/17 05:15 Eos # 0.3 K/uL (0.0-0.7) 07/13/17 05:15 Baso # 0.1 K/uL (0.0-0.2) 07/13/17 05:15 Sodium 141 mmol/l (132-148) 07/14/17 05:20 Potassium 3.8 MMOL/L (3.6-5.0) 07/14/17 05:20 Chloride 107 mmol/L (98-107) 07/14/17 05:20 Carbon Dioxide 24 mmol/L (22-30) 07/14/17 05:20 Anion Gap 14 (10-20) 07/14/17 05:20 BUN 12 mg/dl (7-17) 07/14/17 05:20 Creatinine 0.7 mg/dL (0.7-1.2) 07/14/17 05:20 Est GFR ( Amer) > 60 07/14/17 05:20 Est GFR (Non-Af Amer) > 60 07/14/17 05:20 POC Glucose (mg/dL) 213 mg/dL (65-110) H 07/14/17 12:53 Random Glucose 293 mg/dL (65-105) H 07/14/17 05:20 Hemoglobin A1c 15.8 % (4.2-6.5) H D 07/13/17 05:15 Calcium 8.8 mg/dL (8.4-10.2) 07/14/17 05:20 Phosphorus 3.1 mg/dl (2.5-4.5) 07/14/17 05:20 Total Bilirubin 0.4 mg/dl (0.2-1.3) 07/14/17 05:20 AST 47 U/L (14-36) H D 07/14/17 05:20 ALT 43 U/L (9-52) 07/14/17 05:20 Alkaline Phosphatase 68 U/L (38-126) 07/14/17 05:20 Troponin I < 0.0120 ng/mL (0.00-0.120) 07/13/17 05:15 Total Protein 5.8 G/DL (6.3-8.2) L 07/14/17 05:20 Albumin 3.0 g/dL (3.5-5.0) L 07/14/17 05:20 Globulin 2.8 gm/dL (2.2-3.9) 07/14/17 05:20 Albumin/Globulin Ratio 1.1 (1.0-2.1) 07/14/17 05:20 Triglycerides 215 mg/DL (0-149) H D 07/13/17 05:15 Cholesterol 137 mg/dL (0-199) 07/13/17 05:15 LDL Cholesterol Direct 72 mg/dL (0-129) 07/13/17 05:15 HDL Cholesterol 22 MG/DL (30-70) L 07/13/17 05:15 TSH 3rd Generation 0.75 mIU/ML (0.46-4.68) 07/13/17 05:15 Cortisol AM Sample 17.1 ug/dL (4.46-22.7) 07/13/17 05:15 Urine Color Yellow (YELLOW) 07/12/17 15:34 Urine Clarity Slighty-cloudy (Clear) 07/12/17 15:34 Urine pH 6.0 (5.0-8.0) 07/12/17 15:34 Ur Specific [place] 1.021 (1.003-1.030) 07/12/17 15:34 Urine Protein Negative mg/dL (NEGATIVE) 07/12/17 15:34 Urine Glucose (UA) >=500 mg/dL (Normal) 07/12/17 15:34 Urine Ketones Negative mg/dL (NEGATIVE) 07/12/17 15:34 Urine Blood Negative (NEGATIVE) 07/12/17 15:34 Urine Nitrate Negative (NEGATIVE) 07/12/17 15:34 Urine Bilirubin Negative (NEGATIVE) 07/12/17 15:34 Urine Urobilinogen 0.2-1.0 mg/dL (0.2-1.0) 07/12/17 15:34 Ur Leukocyte Esterase Neg Jeff/uL (Negative) 07/12/17 15:34 Urine RBC (Auto) 1 /hpf (0-3) 07/12/17 15:34 Urine Microscopic WBC 5 /hpf (0-5) 07/12/17 15:34 Ur Squamous Epith Cells 1 /hpf (0-5) 07/12/17 15:34 Alcohol, Quantitative < 10 mg/dl (0-10) 07/12/17 12:05 Attending/Attestation - Attestation I have personally seen and examined this patient.: Yes I have fully participated in the care of the patient.: Yes I have reviewed all pertinent clinical information, including history, physical exam and plan: Yes
[2017-07-14 12:18] VITALS: BP 133/93; PULSE 59; TEMP 98.2; O2SAT 99
--- NOTE | 2017-07-14 15:15 | CP.PCM.PN ---
Subjective - Date & Time of Evaluation Date of Evaluation: 07/14/17 Time of Evaluation: 11:00 - Subjective Subjective: The patient was seen on rounds in telemetry. Her Accu-Cheks have been reviewed and she has been given instructions on the proper use of insulin. She has been instructed on use of basal insulin at night and short acting insulin at mealtimes. She offers no complaints regarding her respiratory disease and her sarcoidosis has been stable for a number of years. She had been using prednisone for a short burst of therapy recently because of suspected pneumonia and sinus congestion. She had discontinued her prednisone approximately one month prior to this hospitalization. She will return to the office for follow-up regarding her sarcoidosis subsequent to discharge. Objective - Vital Signs/Intake and Output Vital Signs (last 24 hours): Temp Pulse Resp BP Pulse Ox 98.2 F 59 L 18 133/93 H 99 07/14/17 12:18 07/14/17 12:18 07/14/17 12:18 07/14/17 12:18 07/14/17 12:18 Intake and Output: 07/14/17 07/14/17 11:59 23:59 Intake Total 1900 Balance 1900 - Medications Medications: Current Medications Albuterol/Ipratropium (Duoneb 3 Mg/0.5 Mg (3 Ml) Ud) 3 ml INH RQ6 PRN PRN Reason: Shortness of Breath Carvedilol (Coreg) 3.125 mg PO Q12 [facility] Last Admin: 07/14/17 09:02 Dose: 3.125 mg Enoxaparin Sodium (Lovenox) 40 mg SC DAILY [facility] PRN Reason: Protocol Last Admin: 07/14/17 09:47 Dose: Not Given Glipizide (Glucotrol) 10 mg PO BIDAC [facility] Last Admin: 07/14/17 11:56 Dose: 10 mg Sodium Chloride (Sodium Chloride 0.9%) 1,000 mls @ 125 mls/hr IV .Q8H [facility] Last Admin: 07/14/17 11:57 Dose: Not Given Insulin Detemir (Levemir) 34 units SC HS [facility] Last Admin: 07/13/17 21:42 Dose: 34 units Insulin Human Lispro (Humalog) 0 units SC ACHS [facility] PRN Reason: Protocol Last Admin: 07/14/17 11:57 Dose: Not Given Insulin Human Lispro (Humalog) 14 units SC AC [facility] Last Admin: 07/14/17 11:56 Dose: 14 units Metformin HCl (Glucophage) 850 mg PO BIDWM [facility] Last Admin: 07/14/17 11:55 Dose: 850 mg - Labs Labs: 07/13/17 05:15 07/14/17 05:20 Assessment and Plan (1) Sarcoidosis Status: Resolved (2) Uncontrolled diabetes mellitus Status: Chronic
--- NOTE | 2017-07-14 15:37 | PN ---
ENDO FOLLOWUP NOTE DATE: LOCATION: Room 413 SUBJECTIVE: This is a 52-year-old female with recent uncontrolled type 2 insulin-requiring diabetes, now being followed closely for metabolic management. She presented here with hyperosmolar hyperglycemic state and dehydration and has since then improved clinically and metabolically as noted thereof. Her latest chemistries showed a BUN of 12, sodium 141, potassium 3.8, chloride 107, CO2 of 24, glucose 293, and creatinine 0.7. Her glucose levels are fluctuating, but improved and have ranged from 190 to 310 mg/dL. So, at this time, we will actually modify her current diabetic regimen and add a dual oral hypoglycemic drug combination with glipizide to be given as 10 mg b.i.d. before meals and metformin given as 850 mg b.i.d. after meals as ordered. We will titrate incremental as indicated to optimize metabolic control. We will also modify her insulin therapy and increase the Levemir to 44 units subcu at bedtime daily to start tonight. We will also add Humalog given as 14 units subcu t.i.d. before meals as ordered. We will titrate incremental as indicated to optimize metabolic control. We will follow and advise accordingly. Salina Forrester MD
== END 2017-07-14 14:30 | disposition home or self-care (01) ==
LOC: H.ER 11:27 → INTOOBSV 14:46 → H.ERHOLD 14:46 → H.TEL 16:57
DX: E11.65 Type 2 diabetes mellitus with hyperglycemia (principal); Z79.4 Long term (current) use of insulin; E66.01 Morbid (severe) obesity due to excess calories; Z68.41 Body mass index [BMI] 40.0-44.9, adult; Z23 Encounter for immunization; E86.0 Dehydration; I10 Essential (primary) hypertension; E78.5 Hyperlipidemia, unspecified; J45.909 Unspecified asthma, uncomplicated; E87.1 Hypo-osmolality and hyponatremia; D86.9 Sarcoidosis, unspecified; Z91.14 Patient's other noncompliance with medication regimen; R55 Syncope and collapse
CPT/HCPCS: 36415; 71020; 80053; 80061; 80320; 81003; 82533; 82948; 83036; 84100; 84443; 84484; 85025; 90471; 90732; 93005; 96374; 96376; 99285; G0378; J1650; J7040; Q2035